=== PATIENT | male | born 1985 | race Caucasian/White ===

== ENCOUNTER 2018-11-04 19:26 | Emergency (ER) | payer OTHER ==
[~2018-11-04] VITALS: Ht 182.8 cm; Wt 77.1 kg
--- NOTE | ~2018-11-04 | EKG ---
[place], [place] ELECTROCARDIOGRAM REPORT NAME: MARIA FERNANDA UGARTE UNIT #: [id number] ROOM: DOCTOR: EPIPHANY DRAFT REPORT BIRTHDATE: [birth year] [facility] Test Date: 2018-11-04 Test Time: 20:08:07 Pat Name: MARIA FERNANDA UGARTE Department: Room: Gender: Learning Administrator: Judit Conley : 1985 Requested By: YI PATEL PA-C Order Number: [id number] Reading MD: Chelsea Haskins MD Measurements Intervals [place] Rate: 83 P: 78 GA: 209 QRS: 88 QRSD: 124 T: 63 QT: 416 QTc: 489 Interpretive Statements Sinus rhythm Borderline prolonged GA interval Nonspecific intraventricular conduction delay Electronically Signed On 11-05-2018 7:37:35 PDT by Chelsea Haskins MD CM:EKGRPT:ELECTROCARDIOGRAM REPORT [id number] YI PATEL PA-C EPIPHANY DRAFT REPORT YI PATEL PA-C
[~2018-11-04 19:26] MED LIST: BACTRIM DS 8001 TA1 PO; HYDROCODONE BIT1 T11 PO; KEFLEX500 MG PO; MOTRIN800 MG PO; NORCO 325 MG-51 TAB PO; PEN-VEE K500 MG PO; SILVADENE1% TP; ULTRAM50 MG PO
[2018-11-04 20:17] LABS: HEMATOCRIT 51.9 % (42.0-52.0); HEMOGLOBIN 18.2 g/dl (14.0-18.0); MEAN CELL VOLUME 89.2 fl (80.0-94.0); MEAN CORPUSCULAR HGB 31.3 pg (27.0-31.0); MEAN CORPUSCULAR HGB CONC 35.1 g/dl (33.0-37.0); MEAN PLATELET VOLUME 10.1 fl (9.6-12.3); PLATELET COUNT AUTOMATED 263 10*3/uL (130-400); RED BLOOD COUNT 5.82 10*6/uL (4.50-5.90); RED CELL DISTRI WIDTH 13.1 % (0-14.5); WHITE BLOOD COUNT 26.2 10*3/uL (4.8-10.8)
[2018-11-04 20:47] LABS: PLATELET SUFFICIENCY NORMAL (NORMAL); TOTAL CELLS COUNTED 100 #CELLS
[2018-11-04 20:48] LABS: BURR CELLS MODERATE
[2018-11-04 22:08] LABS: BUN 75 mg/dl (7-24); CHLORIDE 88 mmol/L (98-107); CREATININE 4.71 mg/dL (0.70-1.30); POTASSIUM 7.7 mmol/L (3.5-5.1); SODIUM 122 mmol/L (136-145)
[2018-11-04 22:09] LABS: ALBUMIN 3.4 gm/dl (3.1-4.5); TOTAL PROTEIN 6.5 gm/dL (6.4-8.2)
[2018-11-04 22:10] LABS: ALKALINE PHOSPHATASE 102 U/L (45-117); SGOT/AST 8908 IU/L (3-35)
[2018-11-04 22:11] LABS: SGPT/ALT 1982 U/L (12-78)
[2018-11-04 22:21] LABS: MYOGLOBIN > 20000.0 ng/ml (16-116)
[2018-11-04 22:22] LABS: CKMB > 1000.0 ng/ml (0.5-3.6)
== END 2018-11-04 22:15 | disposition short-term general hospital (02) ==
LOC: ED 19:26
PROVIDERS: Physician Assistant
DX: N17.9 Acute kidney failure, unspecified (principal); M62.82 Rhabdomyolysis; E87.5 Hyperkalemia; E83.51 Hypocalcemia; E87.1 Hypo-osmolality and hyponatremia; M79.671 Pain in right foot; M79.672 Pain in left foot; M79.641 Pain in right hand; M79.642 Pain in left hand; M79.605 Pain in left leg; M79.604 Pain in right leg; X58.XXXA Exposure to other specified factors, initial encounter; Y93.89 Activity, other specified; Y92.89 Other specified places as the place of occurrence of the external cause; Y99.0 Civilian activity done for income or pay